=== PATIENT | female | born 1930 | race Caucasian/White ===

== ENCOUNTER → 2016-09-12 | Outpatient (CLI) | payer MEDICARE, OTHER ==
[~2016-09-12] MED LIST: ACET650T2 PO; ALLO100T PO; AML5T PO; AMOX-358 PO; AMOX1TAB12 PO; AMOX500T2 PO; AMOX875T2 PO; ATEN-154 PO; CHOL200018 PO; CLN150C1RX PO; FEXO-14 PO; FRSM40T PO; FURO-124 PO; KCL20TCR PO; LEVO100T11 PO; LOSA25TA2 PO; NITR100C3 PO; POTA10TA36 PO; PRM25T PO; SULF1TAB35 PO; WARF2TAB PO; WARF3TAB PO; [UNRECOGNIZED DRUG - REMARK] PO
[2016-09-12 14:54] LABS: ANION GAP 17.6 MEQ/L (3-15)
== END ==
LOC: LAB 14:10
PROVIDERS: ATTEND Family Medicine
DX: R79.89 Other specified abnormal findings of blood chemistry (principal)
CPT/HCPCS: 36415; 80048

== ENCOUNTER → 2016-09-25 | Outpatient (CLI) | payer MEDICARE, OTHER ==
[2016-09-25 16:53] LABS: BASOPHILS % (AUTO) 1 % (0-2); EOSINOPHILS # (AUTO) 0.3 10^3uL; EOSINOPHILS % (AUTO) 4 % (0-4); LYMPHOCYTES # (AUTO) 1.6 X10^3; MEAN CORPUSCULAR HGB CONC 35.2 g/dL (31.0-37.0); MEAN CORPUSCULAR VOLUME 88 FL (80-100); MEAN PLATELET VOLUME 9.9 FL (6.0-9.5); MONOCYTES # (AUTO) 0.6 X10^3; MONOCYTES % (AUTO) 9 % (3-11); NEUTROPHILS # (AUTO) 4.7 X10^3; NEUTROPHILS % (AUTO) 65 % (51-67); PLATELET COUNT 190 10^3uL (150-450); WHITE BLOOD COUNT 7.19 10^3uL (4.0-11.0)
[2016-09-25 17:15] LABS: BILIRUBIN,URINE Negative (Negative); CLARITY,URINE Clear; COLOR,URINE Yellow; GLUCOSE, URINE (UA) Negative (Negative); LEUKOCYTE ESTERASE ,URINE Negative (Negative); PH,URINE 5.5 (5.0 - 8.0); UROBILINOGEN,URINE 0.2 mg/dL (0.2-1.0)
[2016-09-25 17:32] LABS: CALCULATED IONIZED CALCIUM 4.1 mg/dL (3.8-4.6); TOTAL PROTEIN 7.1 g/dL (6.4-8.5)
[2016-09-25 17:47] LABS: ERYTHROCYTE SEDIMENTATION RT* 18 mm/hr (0-23)
== END ==
LOC: LAB 16:31
PROVIDERS: ATTEND Family Medicine
DX: R79.89 Other specified abnormal findings of blood chemistry (principal); D50.8 Other iron deficiency anemias; M35.3 Polymyalgia rheumatica; N39.0 Urinary tract infection, site not specified; E83.42 Hypomagnesemia; E03.4 Atrophy of thyroid (acquired); M10.071 Idiopathic gout, right ankle and foot; D51.0 Vitamin B12 deficiency anemia due to intrinsic factor deficiency
CPT/HCPCS: 36415; 80053; 81003; 82607; 83735; 84436; 84443; 84550; 85025; 85610; 85652; 86140

== ENCOUNTER → 2016-10-24 | Outpatient (CLI) | payer MEDICARE, OTHER | LOC: LAB 16:36 | PROVIDERS: ATTEND Family Medicine | DX: R79.1 Abnormal coagulation profile (principal); E03.4 Atrophy of thyroid (acquired) | CPT/HCPCS: 36415; 84436; 84443; 85610 ==

== ENCOUNTER → 2016-11-17 | Outpatient (REF) | payer MEDICARE, OTHER ==
[2016-11-17 19:01] LABS: BILIRUBIN,URINE Negative (Negative); CLARITY,URINE Clear; COLOR,URINE Yellow; GLUCOSE, URINE (UA) Negative (Negative); LEUKOCYTE ESTERASE ,URINE 1+ (Negative); UROBILINOGEN,URINE 0.2 mg/dL (0.2-1.0)
[2016-11-17 19:32] LABS: URINE CENTRIFUGED VOLUME 12 mL
== END ==
LOC: LAB 18:35
PROVIDERS: ATTEND Family Medicine
DX: N39.0 Urinary tract infection, site not specified (principal)
CPT/HCPCS: 81003; 81015; 87077; 87088; 87186

== ENCOUNTER 2016-12-08 17:17 | Emergency (ER) | payer MEDICARE, OTHER ==
[~2016-12-08] VITALS: Ht 162.6 cm; Wt 81.8 kg
[2016-12-08] MEDS ORDERED: ONDANSETRON 2 MG/ML (Z0FRAN) 2 ML VIAL IV ONE (18:15)
[2016-12-08] MEDS ORDERED: SODIUM CHLORIDE FLUSH 3 ML SYR IV ONE (18:15)
[2016-12-08] MEDS ORDERED: SODIUM CHLORIDE FLUSH 10 ML SYR IV PRN (18:15)
--- NOTE | 2016-12-08 18:30 | NUR ---
2 IV starts missed in the right wrist by this RN.
[2016-12-08 18:32] LABS: BASOPHILS % (AUTO) 0 % (0-2); EOSINOPHILS # (AUTO) 0.2 10^3uL; EOSINOPHILS % (AUTO) 3 % (0-4); LYMPHOCYTES # (AUTO) 1.7 X10^3; MEAN CORPUSCULAR HEMOGLOBIN 30.3 PG (26.0-34.0); MEAN CORPUSCULAR HGB CONC 34.4 g/dL (31.0-37.0); MEAN CORPUSCULAR VOLUME 88 FL (80-100); MEAN PLATELET VOLUME 9.7 FL (6.0-9.5); MONOCYTES # (AUTO) 0.7 X10^3; MONOCYTES % (AUTO) 10 % (3-11); NEUTROPHILS # (AUTO) 4.5 X10^3; NEUTROPHILS % (AUTO) 63 % (51-67); PLATELET COUNT 195 10^3uL (150-450); WHITE BLOOD COUNT 7.06 10^3uL (4.0-11.0)
[2016-12-08 18:50] LABS: ANION GAP 17.2 MEQ/L (3-15); TOTAL PROTEIN 7.3 g/dL (6.4-8.5)
--- NOTE | 2016-12-08 19:54 | NUR ---
Patient was a very hard IV stick. Patient stuck by 3 different RNs. Patient tolerated well, family and patient aware that she is a hard stick and did not seem upset with care.
[2016-12-08 20:18] LABS: BILIRUBIN,URINE Negative (Negative); CLARITY,URINE Clear; COLOR,URINE Yellow; GLUCOSE, URINE (UA) Negative (Negative); LEUKOCYTE ESTERASE ,URINE Negative (Negative); UROBILINOGEN,URINE 0.2 mg/dL (0.2-1.0)
--- NOTE | 2016-12-08 20:42 | Diagnostic Imaging Report ---
PROCEDURE: CT abdomen and pelvis without contrast. TECHNIQUE: Multiple contiguous axial images were obtained through the abdomen and pelvis without the use of intravenous contrast. INDICATION: Right lower quadrant pain. FINDINGS: The lung bases are clear. The patient appears to have had a left hepatectomy. The gallbladder is surgically absent. The spleen is not enlarged. 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 The adrenals and kidneys appear normal. The small bowel is not dilated. The colon appears normal. The urinary bladder is normal. The uterus is surgically absent. There is no intraperitoneal free air or free fluid. IMPRESSION: No acute abnormality is seen in the abdomen or pelvis. Dictated by: Dictated on workstation # [id number]
[2016-12-08] MEDS ORDERED: ONDA4TAB8 PO (21:00)
[2016-12-08] MEDS ORDERED: LEVO100T7 PO (21:12)
[2016-12-08] MEDS ORDERED: GUAI5SYR PO (21:12)
[2016-12-08] MEDS ORDERED: CEPH-507 PO (21:12)
[2016-12-08] MEDS ORDERED: CRAN450T9 PO (21:12)
[2016-12-08] MEDS ORDERED: WRF1T PO (21:12)
[2016-12-08] MEDS ORDERED: ESCI5TAB PO (21:12)
[2016-12-08] MEDS ORDERED: SPIR25TA PO (21:12)
[2016-12-08] MEDS ORDERED: FEXO-14 PO (21:12)
[2016-12-08] MEDS ORDERED: AC325T PO (21:12)
[2016-12-08] MEDS ORDERED: SERT25TA69 PO (21:12)
[2016-12-08] MEDS ORDERED: SENN1TAB76 PO (21:12)
[2016-12-08] MEDS ORDERED: FURO-125 PO (21:12)
[2016-12-08 21:16] VITALS: BP 127/65
--- NOTE | 2016-12-08 21:24 | NUR ---
Called report to Destiney Marks LPN on patient. Verbalized understanding and no futher questions
== END 2016-12-08 21:18 | disposition home or self-care (01) ==
LOC: ED 17:19
DX: R10.31 Right lower quadrant pain (principal)
CPT/HCPCS: 36415; 74176; 80053; 81003; 83690; 85025; 86140; 96361; 96374; 99284; J2405; J7030; 99283

== ENCOUNTER → 2017-01-11 | Outpatient (CLI) | payer MEDICARE, OTHER ==
[~2017-01-11] MED LIST changes: +AC325T PO; +CEPH-507 PO; +CRAN450T9 PO; +ESCI5TAB PO; +FURO-125 PO; +GUAI5SYR PO; +LEVO100T7 PO; +ONDA4TAB8 PO; +SENN1TAB76 PO; +SERT25TA69 PO; +SPIR25TA PO; +WRF1T PO
[2017-01-11 12:55] LABS: ANION GAP 16.7 MEQ/L (3-15)
== END ==
LOC: LAB 12:15
PROVIDERS: ATTEND Family Medicine
DX: Z51.81 Encounter for therapeutic drug level monitoring (principal); Z79.01 Long term (current) use of anticoagulants; R79.89 Other specified abnormal findings of blood chemistry
CPT/HCPCS: 36415; 80048; 85610